=== PATIENT | female | born 1965 | race Caucasian/White ===

== ENCOUNTER → 2023-09-24 11:17 | Outpatient (REF) | payer BC, SELFPAY | LOC: HWRAD 11:17 | PROVIDERS: ATTENDING PHYSICIAN Internal Medicine Cardiovascular Disease; FAMILY PHYSICIAN Family Medicine; REFERRING PHYSICIAN Internal Medicine Critical Care Medicine | DX: H93.A9 Pulsatile tinnitus, unspecified ear (principal); Z87.891 Personal history of nicotine dependence | CPT/HCPCS: 70496; 70498; 71271; Q9967 ==

== ENCOUNTER → 2024-01-15 11:03 | Outpatient (REF) | payer BC, SELFPAY | LOC: HWWDC 11:03 | PROVIDERS: ATTENDING PHYSICIAN Obstetrics & Gynecology; FAMILY PHYSICIAN Family Medicine; REFERRING PHYSICIAN Specialist | DX: Z12.31 Encounter for screening mammogram for malignant neoplasm of breast (principal) | CPT/HCPCS: 77063; 77067 ==

== ENCOUNTER → 2024-07-10 09:17 | Outpatient (REF) | payer BC, SELFPAY | LOC: HWRCS 09:17 | PROVIDERS: ATTENDING PHYSICIAN Internal Medicine Cardiovascular Disease; FAMILY PHYSICIAN Family Medicine | DX: R06.09 Other forms of dyspnea (principal); J44.9 Chronic obstructive pulmonary disease, unspecified; Z83.49 Family history of other endocrine, nutritional and metabolic diseases | CPT/HCPCS: 93306 ==

== ENCOUNTER → 2024-09-24 10:06 | Outpatient (REF) | payer BC, SELFPAY | LOC: HWRAD 10:06 | PROVIDERS: ATTENDING PHYSICIAN Internal Medicine Critical Care Medicine; FAMILY PHYSICIAN Family Medicine | DX: Z87.891 Personal history of nicotine dependence (principal) | CPT/HCPCS: 71271 ==

== ENCOUNTER → 2024-10-15 09:20 | Outpatient (REF) | payer BC, SELFPAY | LOC: RAD 09:20 | PROVIDERS: ATTENDING PHYSICIAN Family Medicine | DX: R19.04 Left lower quadrant abdominal swelling, mass and lump (principal) | CPT/HCPCS: 74177; Q9967 ==

== ENCOUNTER → 2025-02-18 11:36 | Outpatient (REF) | payer BC, SELFPAY | LOC: HWWDC 11:36 | PROVIDERS: ATTENDING PHYSICIAN Obstetrics & Gynecology; FAMILY PHYSICIAN Family Medicine | DX: Z12.31 Encounter for screening mammogram for malignant neoplasm of breast (principal) | CPT/HCPCS: 77063; 77067 ==